=== PATIENT | male | born 1990 | race Two or more races ===

== ENCOUNTER 2025-03-15 18:10 | Emergency (ER) | payer MEDICAID, SELFPAY ==
[2025-03-15 18:11] VITALS: BMI 23.5
[2025-03-15 18:42] VITALS: BP 134/72; PULSE 79; RESP 18; TEMP 36.7; O2SAT 97
--- NOTE | 2025-03-15 19:17 | XR_ITS ---
Examination: CT brain head without contrast. 2-D sagittal coronal reconstructions Date and time of exam:March 15, 2025 1953 hours INDICATIONS: Head injury today with left eye swelling CTDI: vol (mGy):50.5 DLP: (mGycm):1050 Technique: Multiple CT axial sections of the brain have been obtained, 5 mm slice thickness. Contrast has not been administered. 2-D sagittal, coronal reconstructions have been obtained Low dose protocols were performed. One or more of the following dose reduction techniques were used; automated exposure control, adjustment of the mA and/or KV according to patient size, use of iterative reconstruction technique. Findings: No significant ventricular enlargement. Intra-axial or extra-axial hemorrhage density is not seen. No mass effect or midline shift Basal cisterns are not remarkable. Fourth ventricle is midline. Cranial vault intact. Optic globes appear intact Orbital rims intact Large retention cyst left maxillary antrum Impression: Negative for acute hemorrhage, mass effect or midline shift
--- NOTE | 2025-03-15 19:17 | PD.EDHEAD ---
ED Head Injury RME/HPI General Chief complaint: Head Injury Stated complaint: HIT IN HEAD AT 1400, NO LOC Time Seen by Provider: 03/15/25 18:23 Arrival date/time: 03/15/25 18:10 This is a case of 34-year-old male who came into the emergency room due to laceration on the right periorbital area patient was working and accidentally hit with a metal on the right periorbital area denies any loss of consciousness denies any blurring of vision patient sustained a 2 cm laceration minimal bleeding no other injury noted Limitations: no limitations Related Data Previous Rx's ?Medication ?Instructions ?Recorded ondansetron HCl 4 mg tablet 4 mg PO Q6H PRN nausea and 03/11/21 (Zofran) vomiting #30 tabs ciprofloxacin HCl 500 mg tablet 500 mg PO BID #14 tabs 12/25/23 (Cipro) cephalexin 500 mg capsule 500 mg PO Q8H 10 days #30 caps 03/15/25 mupirocin 2 % topical ointment 1 applic topical TID #22 grams 03/15/25 Allergies Allergy/AdvReac Type Severity Reaction Status Date / Time banana Allergy Severe Swelling Verified 03/15/25 18:14 of Lip/Tongue/Throat pistachio nut Allergy Severe Swelling Verified 03/15/25 18:14 of Lip/Tongue/Throat Review of Systems Review of Systems Systems Reviewed: All systems reviewed, normal except as documented Constitutional Constitutional: Reports system reviewed and no additional complaints, except as documented and Reports as per HPI Eyes Eyes: Reports system reviewed and no additional complaints, except as documented, Reports as per HPI, Denies blind spots, Denies blurry vision, Denies change in vision, Denies decreased night vision, Denies diplopia, Denies eye discharge, Denies dry eyes, Denies exophthalmos, Denies floaters, Denies irritation, Denies itchy eyes, Denies loss of peripheral vision, Denies loss of vision, Denies other visual disturbances, Denies photophobia and Denies requires corrective lenses Cardiovascular Cardiovascular: Reports system reviewed and no additional complaints, except as documented and Reports as per HPI Respiratory Respiratory: Reports system reviewed and no additional complaints, except as documented and Reports as per HPI Gastrointestinal Gastrointestinal: Reports system reviewed and no additional complaints, except as documented and Reports as per HPI Genitourinary Genitourinary: Reports system reviewed and no additional complaints, except as documented and Reports as per HPI Musculoskeletal Musculoskeletal: Reports system reviewed and no additional complaints, except as documented Integumentary/Breasts Skin/Breast: Reports system reviewed and no additional complaints, except as documented Neurologic Neurologic: Reports system reviewed and no additional complaints, except as documented and Denies loss of vision Allergic/Immunologic Allergic/Immunologic: Denies itchy eyes Past Medical History Past Medical History CARDIAC: Negative Cardiac Disorders RESPIRATORY: Negative Asthma GENITOURINARY: Negative Renal Disease ENDOCRINE: Negative Diabetes Mellitus Type 2 HEMATOLOGIC: Negative Sickle Cell Disease Social History SMOKING STATUS: Never smoker ED Exam General Limitations: Present no limitations General appearance: Present alert and in no apparent distress Head Head exam: Present atraumatic and other (Sustained a periorbital right contusion hematoma with 2 cm flap laceration no crepitation no deformity no redness) Eye Eye exam: Present normal appearance, PERRL, EOMI and other (perrl eom intact no papiledema no hyphema conjunctiva normal) ENT ENT exam: Present normal exam, normal oropharynx and mucous membranes moist Neck Neck exam: Present normal inspection, full ROM and trachea midline Chest Chest inspection: Present normal inspection and symmetric chest wall rise Respiratory Respiratory exam: Present normal lung sounds bilaterally Cardiovascular Cardiovascular exam: Present regular rate, normal rhythm and normal heart sounds Abdominal Exam Abdominal exam: Present soft and normal bowel sounds Extremities Exam Extremities exam: Present normal inspection and full ROM Back Exam Back exam: Present normal inspection and full ROM Neurological Exam Neurological exam: Present alert, oriented X3, CN II-XII intact and other (Awake alert oriented x 4 no focal deficit GCS 15/15 steady gait memory intact no slurring of speech no facial droop negative Babinski motor sensory reflex normal CN II to XII is normal) Psychiatric Psychiatric exam: Present normal affect and normal mood Skin Skin exam: Present warm, dry, intact, normal color and other (Noted 2 cm laceration on the right periorbital area minimal bleeding no foreign body no bone injury no cellulitis no abscess) Course Quality Measures none Orders Category Date Time Status CT head/brain wo con Stat Exams 03/15/25 19:17 Completed Lidocaine 1% 20 ml [Xylocaine 1% 20 ML] Med 03/15/25 20:09 Discontinued 20 ml INFL X1 ONE TET,DIP/PERT AC (Adult)-Tdap [Boostrix Adult (Tdap) Med 03/15/25 20:17 Discontinued Vacc] 0.5 ml IMI .ONCE ONE Vital Signs Vital signs: Vital Signs Temperature 98.1 F 03/15/25 18:42 Pulse Rate 79 03/15/25 18:42 Respiratory Rate 18 03/15/25 18:42 Blood Pressure 134/72 H 03/15/25 18:42 Pulse Oximetry (%) 97 03/15/25 18:42 Oxygen Delivery Method Room Air 03/15/25 18:42 Oxygen saturation 97% in room air PROCEDURES: Laceration Laceration 1: Site: other (Periorbital area) Side (If applicable): right Size (cm): 2 Description: flap Depth: simple, single layer Local Anesthetic: lidocaine 1% Amount of anesthesia used (mL): 2 Pre-repair: irrigated extensively and deep structures intact Skin layer closed with: nylon Suture size (cm): 5-0 Number of sutures: 3 Head Injury MDM Narrative MDM Narrative:: This is a case of 34-year-old male who came into the emergency room due to laceration on the right periorbital area patient was working and accidentally hit with a metal on the right periorbital area denies any loss of consciousness denies any blurring of vision patient sustained a 2 cm laceration minimal bleeding no other injury noted physical examination patient is awake alert oriented not in distress nontoxic looking Awake alert oriented x 4 no focal deficit GCS 15/15 steady gait memory intact no slurring of speech no facial droop negative Babinski motor sensory reflex normal CN II to XII is normal patient sustained a 2 cm laceration minimal bleeding no foreign body laceration repair was performed patient tolerated well the procedure procedure done via [place] protocol and via sterile technique no complication noted bleeding controlled patient also sustained a contusion in the right periorbital area neurological exam is normal CT scan showed normal no bleeding at this point patient is discharge with stable condition he will follow-up with PCP in 2 days for evaluation and wound check and removal of suture in 5 days head injury precaution was also discussed with the patient for any changes of sensorium or signs and symptoms of function he will return to the emergency room immediate call 911 patient was given Tdap here in the emergency room patient was prescribed cephalexin and mupirocin for treatment prevent infection Patient was discharged with comfortable condition walking with stable gait. Patient verbalized no further complains explained diagnosis and answered patient question. Patient is comfortable with the proposed management plan including the need to follow up with his/her primary care physician and any specialist if applicable Discussed patient for any urgent condition or worsening sx, He/She needed to go to emergency room immediately or call 911. Patient acknowledge the responsibility to follow up as instructed and to monitor her/his symptoms. For any persistence of the symptoms for more than 3-5 days return precaution advised. Discussed the result of the test and was given printed discharge instruction Patient data External records reviewed:: [facility] previous records Clinical information provided by:: patient Social determinants that could affect healthcare access:: none Patient has the following chronic illnesses:: None How is presenting disease/condition affected by chronic disease/condition?: no chronic disease Evaluation data The following diagnostics were reviewed and interpreted by me:: radiology exam(s) Lab and/or radiology exams considered but not ordered:: Reviewed Interpretation Summary: Reviewed Medications / Prescriptions Medications or Prescriptions considered but not ordered:: Reviewed Medication administrations:: Medication Administration History Discontinued Medications Diphtheria/Tetanus/Acell Pertussis (Diphth,Pertuss(Acell),Tet Vac 0.5 Ml Syr- Adult) 0.5 ml IMi .ONCE ONE Stop: 03/15/25 20:18 Lidocaine HCl (Lidocaine Hcl 1% 20 Ml Vial) 20 ml INFL X1 ONE Stop: 03/15/25 20:10 Last Admin: 03/15/25 20:13 Dose: 20 ml Documented By: KF Given Consultations Consultation(s) initiated? (list below): No Diagnosis Differential diagnosis head injury: concussion without loss of consciousness, closed head injury and concussion with loss of consciousness Most likely diagnosis given after review of the tests above:: Head injury periorbital contusion hematoma Admission Indicated Admission indicated?: not indicated Explain why admission is indicated or not indicated:: Not indicated Admission Request Was there a request for admission?: No Admission Attestation Admission request attestation: Not indicated Disposition Plan Disposition Plan: Discharge Discharge Attestation Discharge Attestation: The patient and all family members were given an opportunity to ask questions and understood the discharge instructions. Discharge instructions specifically effects, indications for sooner follow up or return to the emergency department, and the expected course of current diagnosis. Patient condition: Stable Discharge Plan Plan Patient Disposition: HOME (Self Care) Patient condition on transfer: Stable Prescriptions/Referrals Prescriptions/Med Rec: New cephalexin 500 mg capsule 500 mg PO Q8H 10 Days Qty: 30 0RF mupirocin 2 % ointment 1 applic topical TID Qty: 22 0RF No Action ondansetron HCl [Zofran] 4 mg tablet 4 mg PO Q6H PRN (Reason: nausea and vomiting) Qty: 30 0RF ciprofloxacin HCl [Cipro] 500 mg tablet 500 mg PO BID Qty: 14 0RF Problem List Clinical Impression: Head injury, Contusion, periorbital, Laceration of periorbital area Patient/Caregiver Discharge Instructions Education Materials: ED Eye Contusion, ED Head Injury (Adult), ED Laceration, Face: Stitches or Tape Additional Instructions: Follow-up with your primary care physician in 2 days for reevaluation and wound check and removal of suture in 5 to 7 days for any worsening symptoms or any emergent concern such as signs and symptoms of infection such as redness swelling discharge from the wound pain fever chills or any signs and symptoms of changing sensorium such as headache nausea vomiting dizziness blurring of vision unsteady gait etc. call 911 or go to the nearest emergency room keep the wound clean and dry finish the course of antibiotic ice pack contusion is adviseddr cameron Print Language: Latvian Stand Alone Forms: Anila Award Info., Patient Portal Info Letter PA/ROSALIA Supervising Physician PA/ROSALIA Supervising Physician: dr cameron
[2025-03-15] MEDS: LIDOCAINE HCL 1% 20 ML VIAL INFL (20:13)
[2025-03-15] MEDS: DIPHTH,PERTUSS(ACELL),TET VAC 0.5 ML SYR- ADULT IMi (20:32)
== END 2025-03-15 20:42 | disposition home or self-care (01) ==
LOC: SERX 20:55
PROVIDERS: Emergency Provider Emergency Medicine; PCP Family Medicine
DX: S01.111A Laceration without foreign body of right eyelid and periocular area, initial encounter (principal); W22.8XXA Striking against or struck by other objects, initial encounter; Z23 Encounter for immunization
CPT/HCPCS: 12011; 70450; 90471; 90715; 99284; J3490